=== PATIENT | female | born 1960 | race Hispanic/Latino ===

== ENCOUNTER 2018-02-12 20:27 | Emergency (ER) | payer SELFPAY ==
[2018-02-12] MEDS ORDERED: ONDANSETRON HCL 4 MG ORAL DISINTEGRATING TAB PO ONE (21:15)
[2018-02-12] MEDS ORDERED: ZOFRAN ODT4 MG PO (21:17)
== END 2018-02-12 21:35 | disposition home or self-care (01) ==
LOC: FSED 20:27
DX: R11.2 Nausea with vomiting, unspecified (principal); I10 Essential (primary) hypertension
CPT/HCPCS: 99282